=== PATIENT | male | born 1995 | race African-American/Black ===

== ENCOUNTER 2016-03-06 07:09 | Emergency (ER) | payer OTHER ==
[2016-03-06 07:36] VITALS: BP 153/70; PULSE 92; TEMP 98.2; BMI 38.2
[2016-03-06] MEDS ORDERED: PREDNISONE 10 MG TAB PO ONE (07:49)
[2016-03-06] MEDS ORDERED: AMOXICILLIN 500 MG CAP PO ONE (07:49)
--- NOTE | 2016-03-06 07:52 | EDPRACDOC ---
- General Information Chief Complaint: Sore Throat Stated Complaint: SORE THROAT/ FEVER Time Seen by Provider: 03/06/16 07:47 Information Source: Patient Home Medications: Home Medications Amoxicillin [Amoxil] 500 mg PO TID #30 cap 03/06/16 Prednisone [Deltasone, Orasone] 50 mg PO DAILY #5 tab 03/06/16 Allergies/Adverse Reactions: Allergies Allergy/AdvReac Type Severity Reaction Status Date / Time No Known Allergies Allergy Verified 03/06/16 07:34 - History of Present Illness Onset: yesterday HPI: PT PRESENTS WITH SORE THROAT THAT BEGAN YESTERDAY. HAS ASSOCIATED INTERMITTENT VOMITING. Sore Throat Symptoms: Reports: Pain Relevant History of: Reports: None Pain Severity: Reports: Moderate Associated Signs and Symptoms: Denies: Fever, Cough ED Past Medical History - History Reviewed Yes Nurses notes reviewed and agree except as marked No Past Medical History: Yes Patient has no past medical history - Patient Medical History Psychological History: Denies: Depression - Family Medical History Reports: Diabetes, Cancer - Social Medical History Smoking Status: Former smoker Lives In: Home EDM Review of Systems - Review of Systems ROS Negative Except as Marked: Yes All systems reviewed and were negative except as marked Constitutional: negative: Fever Throat: Pain Gastrointestinal: Nausea, Vomiting - Physical Exam Constitutional: Alert Oriented to: Time, Person, Place Last recorded Vital Signs: Last Vital Signs Temp 98.2 F 03/06/16 07:34 Pulse 92 03/06/16 07:34 Resp 18 03/06/16 07:34 BP 153/70 03/06/16 07:34 Pulse Ox 97 03/06/16 07:34 Oxygen Pulse Oxygen Saturation 97 O2 Device Room Air Oxygen Flow Rate Fraction of Inspired Oxygen ( FIO2) - HEENT Head: negative: Deformity, Laceration Eye Exam: negative: Conjunctival Injection, Pale Conjunctiva Oropharynx: Red, Tonsillar Hypertrophy. negative: Membranes Dry Nose: Congestion Neck: negative: Limited ROM - Respiratory/Cardiovascular Respiratory: Normal - CTA. negative: Accessory Muscle Use, Diminished, Tachypnea Cardiovascular: negative: Bradycardia, Tachycardia, Irregular - Integumentary Skin: Warm, Dry. negative: Rash - Neurologic Memory Impaired: Normal Motor Function: Normal Mood Description: Anxious, Appropriate Thought: Coherent Perception: Normal Decision Time to Discharge: 07:51 - Departure Yes I personally saw and evaluated the patient. Disposition: Home Condition: Stable Final Diagnosis: Acute pharyngitis Instructions: Pharyngitis (ED) Education/Counseling Given To: Patient Education/Counseling Given Regarding: Diagnosis, Treatment, Prognosis, Follow Up Referrals: None,No Provider [Primary Care Provider] - As Needed Prescriptions: Amoxicillin [Amoxil] 500 mg PO TID #30 cap Prednisone [Deltasone, Orasone] 50 mg PO DAILY #5 tab Forms: Excuse Note
== END 2016-03-06 08:03 | disposition home or self-care (01) ==
LOC: ED 07:09
DX: J02.9 Acute pharyngitis, unspecified (principal)
CPT/HCPCS: 99282; J3490